=== PATIENT | male | born 1980 ===

== ENCOUNTER 2019-11-30 22:29 | Emergency (ER) | payer OTHER ==
[~2019-11-30] VITALS: Ht 175.3 cm; Wt 108.9 kg
[2019-11-30] MEDS ORDERED: DESCOVY 200-251 EACH (22:42)
[2019-11-30] MEDS ORDERED: [UNRECOGNIZED DRUG - REMARK] (22:42)
[2019-12-01] MEDS ORDERED: ORASEP SPRAY30 ML MM (01:52)
[2019-12-01] MEDS ORDERED: ZYNCOF 20-400120 ML PO (01:52)
== END 2019-12-01 02:25 | disposition home or self-care (01) ==
LOC: ER 22:29
DX: J11.1 Influenza due to unidentified influenza virus with other respiratory manifestations (principal)

== ENCOUNTER 2021-02-21 09:00 | Outpatient (CLI) | payer OTHER ==
[~2021-02-21 09:00] MED LIST: DESCOVY 200-251 EACH; ORASEP SPRAY30 ML MM; ZYNCOF 20-400120 ML PO; [UNRECOGNIZED DRUG - REMARK]
== END 2021-02-21 09:05 | disposition home or self-care (01) ==
LOC: PPH VACUNA 09:00
DX: Z23 Encounter for immunization (principal)

== ENCOUNTER → 2021-06-08 15:00 | Outpatient (CLI) | payer OTHER | END | disposition home or self-care (01) | LOC: PPH VACUNA 15:00 | DX: Z23 Encounter for immunization (principal) ==